=== PATIENT | male | born 1990 | race Caucasian/White ===

== ENCOUNTER 2018-07-01 02:56 | Emergency (ER) | payer OTHER ==
[2018-07-01 03:09] VITALS: TEMP 97.8
--- NOTE | 2018-07-01 04:15 | ED ---
General Adult HPI - General Source: patient Mode of arrival: EMS Limitations: no limitations <Alexsander Abbasi - Last Filed: 07/01/18 07:17> <Robert Samano - Last Filed: 07/01/18 10:03> - General Chief complaint: Alcohol Stated complaint: ETOH Time Seen by Provider: 07/01/18 03:12 - History of Present Illness Initial comments: Dictation was produced using [employer] dictation software. please excuse any grammatical, word or spelling errors. Chief Complaint: 27-year-old male presents with EtOH intoxication. History of Present Illness: Patient 27-year-old male he was picked up by EMS after being found out in the snow a brown puncture vomit. Patient reports started at this time. He states he drank too much. Denies any pain at this time. Patient is however inebriated. An unreliable historian. Unable to obtain ROS secondary to mental status. PHYSICAL EXAM: General Impression: Alert and oriented x3, not in acute distress, inebriated, smells of EtOH HEENT: Normocephalic atraumatic, extra-ocular movements intact, pupils equal and reactive to light bilaterally, mucous membranes moist. Cardiovascular: Heart regular rate and rhythm, S1&S2 audible, no murmurs, rubs or gallops Chest: Lungs clear to auscultation bilaterally, no rhonchi, no wheeze, no rales Abdomen: Bowel sounds present, abdomen soft, non-tender, non-distended, no organomegaly Musculoskeletal: Pulses present and equal in all extremities, no peripheral edema Motor: no focal deficits noted Neurological: CN II-XII grossly intact, no focal motor or sensory deficits noted Skin: Intact with no visualized rashes ED course: 27-year-old male presents acute EtOH intoxication. Vital signs upon arrival are within acceptable limits. Physical examination is benign. No clinical suspicion of acute traumatic injuries. Patient care is signed out to Dr. Samano for reevaluation after sobriety. This point highly doubt any acute traumatic injuries or serious medical illness. Laboratory evaluation obtained showing no acute processes. Patient resting comfortably in bed. Patient care sent out to Dr. Samano for reevaluation. (Alexsander Abbasi) - Related Data Home Medications Medication Instructions Recorded Confirmed No Known Home Medications 07/01/18 07/01/18 Allergies Allergy/AdvReac Type Severity Reaction Status Date / Time bee venom protein (honey bee) Allergy Anaphylaxis Verified 07/01/18 03:09 Review of Systems ROS Other: All systems not noted in ROS Statement are negative. <Alexsander Abbasi - Last Filed: 07/01/18 07:17> ROS Other: All systems not noted in ROS Statement are negative. <Robert Samano - Last Filed: 07/01/18 10:03> ROS Statement: Those systems with pertinent positive or pertinent negative responses have been documented in the HPI. Past Medical History Past Medical History: No Reported History History of Any Multi-Drug Resistant Organisms: None Reported Past Surgical History: No Surgical Hx Reported Past Psychological History: No Psychological Hx Reported Smoking Status: Never smoker Past Alcohol Use History: Occasional Past Drug Use History: None Reported <Alexsander Abbasi - Last Filed: 07/01/18 07:17> General Exam Limitations: no limitations <Alexsander Abbasi - Last Filed: 07/01/18 07:17> Course Vital Signs 07/01/18 07/01/18 07/01/18 03:03 03:30 04:30 Temperature 97.8 F Pulse Rate 86 Respiratory 20 12 Rate Blood Pressure 105/32 105/52 109/80 O2 Sat by Pulse 100 100 100 Oximetry 07/01/18 07/01/18 07/01/18 05:00 06:00 07:00 Temperature Pulse Rate 78 80 74 Respiratory Rate Blood Pressure 97/66 102/67 106/66 O2 Sat by Pulse 98 98 98 Oximetry 07/01/18 07/01/18 07/01/18 07:25 08:00 09:00 Temperature Pulse Rate 103 H 80 73 Respiratory 18 16 16 Rate Blood Pressure 105/56 112/64 101/58 O2 Sat by Pulse 98 97 97 Oximetry 07/01/18 10:00 Temperature Pulse Rate 78 Respiratory 16 Rate Blood Pressure 108/47 O2 Sat by Pulse Oximetry Medical Decision Making - Lab Data Result diagrams: 07/01/18 04:36 07/01/18 04:36 <Alexsander Abbasi - Last Filed: 07/01/18 07:17> - Lab Data Result diagrams: 07/01/18 04:36 07/01/18 04:36 <Robert Samano - Last Filed: 07/01/18 10:03> - Medical Decision Making The patient was endorsed me at shift change this morning pending sobriety. Patient currently is awake alert oriented 3 and able ably without difficulty. He discharged. (Robert Samano) - Lab Data Lab Results 07/01/18 07/01/18 Range/Units 04:36 04:36 WBC 7.9 (3.8-10.6) k/uL RBC 4.83 (4.30-5.90) m/uL Hgb 14.8 (13.0-17.5) gm/dL Hct 45.3 (39.0-53.0) % MCV 93.7 (80.0-100.0) fL MCH 30.6 (25.0-35.0) pg MCHC 32.7 (31.0-37.0) g/dL RDW 12.7 (11.5-15.5) % Plt Count 239 (150-450) k/uL Neutrophils % 81 % Lymphocytes % 14 % Monocytes % 4 % Eosinophils % 0 % Basophils % 0 % Neutrophils # 6.4 (1.3-7.7) k/uL Lymphocytes # 1.1 (1.0-4.8) k/uL Monocytes # 0.3 (0-1.0) k/uL Eosinophils # 0.0 (0-0.7) k/uL Basophils # 0.0 (0-0.2) k/uL Sodium 143 (137-145) mmol/L Potassium 4.6 (3.5-5.1) mmol/L Chloride 109 H (98-107) mmol/L Carbon Dioxide 26 (22-30) mmol/L Anion Gap 8 mmol/L BUN 28 H (9-20) mg/dL Creatinine 1.01 (0.66-1.25) mg/dL Est GFR (CKD-EPI)AfAm >90 (>60 ml/min/1.73 sqM) Est GFR (CKD-EPI)NonAf >90 (>60 ml/min/1.73 sqM) Glucose 83 (74-99) mg/dL Calcium 9.1 (8.4-10.2) mg/dL Magnesium 2.3 (1.6-2.3) mg/dL Serum Alcohol 198 mg/dL Disposition <Alexsander Abbasi - Last Filed: 07/01/18 07:17> Is patient prescribed a controlled substance at d/c from ED?: No <Robert Samano - Last Filed: 07/01/18 10:03> Clinical Impression: Alcoholic intoxication Disposition: HOME SELF-CARE Condition: Good Instructions (If sedation given, give patient instructions): Alcohol Intoxication (ED) Referrals: None,Stated [Primary Care Provider] - 1-2 days
[2018-07-01 04:50] LABS: Basophils % (A) 0 %; Eosinophils % (A) 0 %; HCT 45.3 % (39.0-53.0); HGB 14.8 gm/dL (13.0-17.5); Lymphocytes # (A) 1.1 k/uL (1.0-4.8); Lymphocytes % (A) 14 %; MCH 30.6 pg (25.0-35.0); MCHC 32.7 g/dL (31.0-37.0); MCV 93.7 fL (80.0-100.0); Mean Platelet Volume 6.8; Monocytes # (A) 0.3 k/uL (0-1.0); Monocytes % (A) 4 %; Neutrophils # (A) 6.4 k/uL (1.3-7.7); Neutrophils % (A) 81 %; Platelet Count 239 k/uL (150-450); RBC 4.83 m/uL (4.30-5.90); RDW 12.7 % (11.5-15.5); WBC 7.9 k/uL (3.8-10.6)
[2018-07-01 05:02] LABS: Anion Gap 8 mmol/L; Blood Urea Nitrogen 28 mg/dL (9-20); Calcium 9.1 mg/dL (8.4-10.2); Carbon Dioxide 26 mmol/L (22-30); Chloride 109 mmol/L (98-107); Glucose 83 mg/dL (74-99); Magnesium 2.3 mg/dL (1.6-2.3); Potassium 4.6 mmol/L (3.5-5.1); Sodium 143 mmol/L (137-145)
[2018-07-01 05:08] LABS: Alcohol 198 mg/dL
[2018-07-01 10:02] VITALS: BP 108/47; PULSE 78; RESP 16
== END 2018-07-01 10:17 | disposition home or self-care (01) ==
LOC: EC 02:56
DX: F10.129 Alcohol abuse with intoxication, unspecified (principal); Z91.030 Bee allergy status
CPT/HCPCS: 36415; 80048; 80320; 83735; 85025; 93005; 99284